=== PATIENT | female | born 1970 | race Caucasian/White ===

== ENCOUNTER → 2018-01-25 13:21 | Outpatient (CLI) | payer OTHER, SELFPAY ==
--- NOTE | 2018-01-25 13:23 | BI_ITS ---
MAMMOGRAPHY - BILATERAL DIAGNOSTIC REASON FOR EXAM: Female, 48 years old. Bilateral breast tenderness for 3 weeks. PERTINENT HISTORY: Non-contributory. TECHNIQUE: Digital bilateral breast luzma (3D mammographic acquisition) in the CC and MLO projections. 2-D mediolateral oblique (MLO) and craniocaudad (CC) views of both breasts were obtained. CAD: Full Field Digital Mammography with Computer Added Detection was performed. COMPARISON: Comparison is made with prior examination April 20, 2017. FINDINGS: Breast Composition: The breasts are heterogeneously dense, which may obscure small masses. There are no dominant masses or suspicious calcifications. Focal asymmetry of breast tissue in the upper deep inner aspect of the right breast. Correlation with ultrasound is recommended. No other significant abnormalities are identified. BI/DIAG MAMM W/CAD, BILAT IMPRESSION: Focal breast asymmetry in the upper deep inner aspect of the right breast. Correlation with ultrasound is recommended. ASSESSMENT CATEGORY: BIRADS Category 0: Incomplete. Need additional imaging evaluation. A letter regarding these results will be sent to the patient by the facility within 30 days. Approximately 10% of breast cancers are not detected by mammography. A normal mammogram should not delay biopsy of a clinically suspicious abnormality. Electronically Signed: Amor Rangel MD at 14:22 EDT Tel [phone], Service support ,
--- NOTE | 2018-01-25 13:23 | US_ITS ---
STUDY: ULTRASOUND BREAST - RIGHT REASON FOR EXAM: Female, 48 years old. Right breast tenderness. TECHNIQUE: Axial and longitudinal images of the RIGHT breast were performed with a high resolution ultrasound transducer. COMPARISON: Comparison is made with prior mammogram done earlier in the day. Comparison made with prior ultrasound outside examination dated April 20, 2016. FINDINGS: RIGHT Breast: Heterogeneous fibroglandular tissue is seen. There is no evidence of solid or cystic mass. The previously seen lymph node at the 10:00 position in the breast measures 6 mm x 6 mm x 2 mm. Mild dilatation of the retroareolar ducts. US/Breast Limited Unilateral IMPRESSION: Dense fibroglandular tissue. No solid or cystic mass lesion is seen. ASSESSMENT CATEGORY: BIRADS Category 2: Benign. A letter regarding these results will be sent to the patient by the facility within 30 days. Electronically Signed: Amor Rangel MD at 14:51 EDT Tel [phone], Service support ,
== END ==
PROVIDERS: Family Provider Family Medicine; PCP Family Medicine; Visit Provider Nurse Practitioner Women's Health
DX: N64.4 Mastodynia (principal)
CPT/HCPCS: 76642; 77062; 77066; G0279

== ENCOUNTER → 2018-06-28 17:24 | Outpatient (CLI) | payer OTHER, SELFPAY ==
[2018-06-28 08:23] VITALS: BMI 26.6
== END ==
PROVIDERS: Family Provider Family Medicine; PCP Family Medicine; Referring Provider Nurse Practitioner Women's Health; Visit Provider Nurse Practitioner Women's Health
DX: N39.0 Urinary tract infection, site not specified (principal); R10.2 Pelvic and perineal pain
CPT/HCPCS: 87077; 87086; 87088; 87186

== ENCOUNTER → 2018-06-29 12:56 | Outpatient (CLI) | payer OTHER, SELFPAY ==
[2018-06-28 08:23] VITALS: BMI 26.6
--- NOTE | 2018-06-29 12:58 | US_ITS ---
STUDY: ULTRASOUND OF THE FEMALE PELVIS - COMPLETE REASON FOR EXAM: Female, 48 years old. Pelvic pain with ablation 2 years ago, history of left ovarian cyst removal LMP: Unknown. TECHNIQUE: Transabdominal imaging initially performed with subsequent endovaginal imaging needed for initial incomplete visualization of the endometrial complex TECHNICAL QUALITY: Adequate. COMPARISON: None. FINDINGS: The uterus is anteverted and is in a midline position. The uterus measures 7.1 x 4.1 x 3.2 cm. Normal uterine cervix. The endometrium measures 2.0 mm in thickness, and is hyperechoic. There is no demonstrated endometrial mass. There is no demonstrated myometrial mass. I.U.D. - The patient does not have an I.U.D. The right ovary is visualized. The right ovary measures 2.4 x 1.9 x 1.0 cm. There is no right ovarian cyst or ovarian mass. There is no visualized right adnexal mass or complex lesion. There is normal arterial and normal venous vascularity. The left ovary is visualized. The left ovary measures 1.2 x 1.7 x 1.3 cm. There is no left ovarian cyst or ovarian mass. There is no visualized left adnexal mass or complex lesion. There is normal arterial and normal venous vascularity. There is no fluid in the cul-de-sac. Visualized urinary bladder is unremarkable. US/Transvaginal Non- IMPRESSION: Normal female pelvis. No ovarian, endometrial or uterine masses. Electronically Signed: Quentin Rice MD at 8:06 EST , Service support ,
--- NOTE | 2018-06-29 12:58 | US_ITS ---
STUDY: ULTRASOUND OF THE FEMALE PELVIS - COMPLETE REASON FOR EXAM: Female, 48 years old. Pelvic pain with ablation 2 years ago, history of left ovarian cyst removal LMP: Unknown. TECHNIQUE: Transabdominal imaging initially performed with subsequent endovaginal imaging needed for initial incomplete visualization of the endometrial complex TECHNICAL QUALITY: Adequate. COMPARISON: None. FINDINGS: The uterus is anteverted and is in a midline position. The uterus measures 7.1 x 4.1 x 3.2 cm. Normal uterine cervix. The endometrium measures 2.0 mm in thickness, and is hyperechoic. There is no demonstrated endometrial mass. There is no demonstrated myometrial mass. I.U.D. - The patient does not have an I.U.D. The right ovary is visualized. The right ovary measures 2.4 x 1.9 x 1.0 cm. There is no right ovarian cyst or ovarian mass. There is no visualized right adnexal mass or complex lesion. There is normal arterial and normal venous vascularity. The left ovary is visualized. The left ovary measures 1.2 x 1.7 x 1.3 cm. There is no left ovarian cyst or ovarian mass. There is no visualized left adnexal mass or complex lesion. There is normal arterial and normal venous vascularity. There is no fluid in the cul-de-sac. Visualized urinary bladder is unremarkable. US/Pelvic (Non ) IMPRESSION: Normal female pelvis. No ovarian, endometrial or uterine masses. Electronically Signed: Quentin Rice MD at 8:06 EST , Service support ,
== END ==
PROVIDERS: Family Provider Family Medicine; PCP Family Medicine; Referring Provider Nurse Practitioner Women's Health; Visit Provider Nurse Practitioner Women's Health
DX: R10.2 Pelvic and perineal pain (principal)
CPT/HCPCS: 76830; 76856; 93976

== ENCOUNTER → 2018-07-20 14:06 | Outpatient (CLI) | payer OTHER, SELFPAY ==
[2018-07-18 14:44] VITALS: BMI 26.6
== END ==
PROVIDERS: Family Provider Family Medicine; PCP Family Medicine; Visit Provider Obstetrics & Gynecology
DX: R30.0 Dysuria (principal)
CPT/HCPCS: 87086; 87088

== ENCOUNTER → 2018-08-08 13:50 | Outpatient (CLI) | payer OTHER, SELFPAY ==
[2018-07-18 14:44] VITALS: BMI 26.6
--- NOTE | 2018-08-08 13:53 | US_ITS ---
STUDY: RENAL ULTRASOUND - COMPLETE REASON FOR EXAM: Female, 48 years old. Recurrent urinary tract infections. TECHNIQUE: Ultrasound evaluation of the kidneys was performed with real-time and static king-scale imaging. COMPARISON: None. FINDINGS: RIGHT KIDNEY: 11.3 x 5.1 x 5.5 cm. Normal cortical thickness 1.6 cm, normal cortical echotexture. There is no mass, cyst, calculus or hydronephrosis. The right ureteral jet within the urinary bladder is visualized. LEFT KIDNEY: 10.2 x 4.8 x 5.1 cm. Normal cortical thickness 1.5 cm, normal cortical echotexture. There is no mass, cyst, calculus or hydronephrosis. The left ureteral jet within the urinary bladder is not visualized. BLADDER: Distended urinary bladder volume 251 mL. Wall thickness up to 4 mm. Normal caliber and contour. No intraluminal debris. US/Kidney and Bladder IMPRESSION: Normal sonographic features of each kidney. Normal sonographic features of the urinary bladder. The right ureteral jet is visualized within urinary bladder. The left ureteral jet is not visualized. This may merely be a matter of timing relative to the activity of urine bolus from the left kidney. Electronically Signed: Bryn Benites MD at 14:44 EST Tel , Service support ,
== END ==
PROVIDERS: Family Provider Family Medicine; PCP Family Medicine; Referring Provider Urology; Visit Provider Urology
DX: N39.0 Urinary tract infection, site not specified (principal)
CPT/HCPCS: 76770

== ENCOUNTER → 2019-06-01 15:04 | Outpatient (CLI) | payer OTHER, SELFPAY ==
[2018-07-18 14:44] VITALS: BMI 26.6
--- NOTE | 2019-06-01 15:34 | BI_ITS ---
MAMMOGRAPHY - BILATERAL SCREENING REASON FOR EXAM: Female, 49 years old. Routine annual screening examination. PERTINENT HISTORY: Non-contributory. TECHNIQUE: Digital bilateral breast vanessa (3D mammographic acquisition) in the CC and MLO projections. 2-D mediolateral oblique (MLO) and craniocaudad (CC) views of both breasts were obtained. CAD: Full Field Digital Mammography with Computer Added Detection was performed. COMPARISON: Comparison is made with prior mammogram dated January 25, 2018 and April 20, 2017. FINDINGS: Breast Composition: The breasts are heterogeneously dense, which may obscure small masses. There are no dominant masses or suspicious calcifications. No other significant abnormalities are identified. There has been no significant change since the prior study. BI/SCREEN MAMM (CAD) W/VANESSA BILAT IMPRESSION: Stable bilateral screening mammogram. Yearly follow-up mammogram recommended. (A) ASSESSMENT CATEGORY: BIRADS Category 1: Negative. A letter regarding these results will be sent to the patient by the facility within 30 days. Approximately 10% of breast cancers are not detected by mammography. A normal mammogram should not delay biopsy of a clinically suspicious abnormality. [id number] Electronically Signed: Amor Rangel, at 8:37 EST , Service support ,
== END ==
PROVIDERS: Family Provider Family Medicine; PCP Family Medicine; Referring Provider Obstetrics & Gynecology; Visit Provider Obstetrics & Gynecology
DX: Z12.31 Encounter for screening mammogram for malignant neoplasm of breast (principal)
CPT/HCPCS: 77063; 77067

== ENCOUNTER → 2020-07-04 07:21 | Outpatient (CLI) | payer OTHER, SELFPAY ==
[2018-07-18 14:44] VITALS: BMI 26.6
--- NOTE | 2020-07-04 07:25 | BI_ITS ---
MAMMOGRAPHY - BILATERAL SCREENING REASON FOR EXAM: Female, 50 years old. Routine annual screening examination. PERTINENT HISTORY: Non-contributory. TECHNIQUE: Digital bilateral breast vanessa (3D mammographic acquisition) in the CC and MLO projections. 2-D mediolateral oblique (MLO) and craniocaudad (CC) views of both breasts were obtained. CAD: Full Field Digital Mammography with Computer Added Detection was performed. COMPARISON: Comparison is made with prior examination dated 06/01/2019 and 01/25/2018. FINDINGS: Breast Composition: The breasts are heterogeneously dense, which may obscure small masses. There are no dominant masses or suspicious calcifications. No other significant abnormalities are identified. There has been no significant change since the prior study. BI/SCREEN MAMM (CAD) W/VANESSA BILAT IMPRESSION: Stable bilateral screening mammogram. Yearly follow-up mammogram recommended. (A) ASSESSMENT CATEGORY: BIRADS Category 1: Negative. A letter regarding these results will be sent to the patient by the facility within 30 days. Approximately 10% of breast cancers are not detected by mammography. A normal mammogram should not delay biopsy of a clinically suspicious abnormality. [id number] Electronically Signed: Amor Rangel, at 8:45 EST , Service support ,
== END ==
PROVIDERS: PCP Family Medicine; Referring Provider Obstetrics & Gynecology; Visit Provider Obstetrics & Gynecology
DX: Z12.31 Encounter for screening mammogram for malignant neoplasm of breast (principal)
CPT/HCPCS: 77063; 77067

== ENCOUNTER → 2021-01-12 17:15 | Outpatient (CLI) | payer OTHER, SELFPAY ==
[2021-01-12 15:24] VITALS: BMI 26.6
[2021-01-15 15:15] LABS: HPV APTIMA, High Risk Negative (Negative)
== END ==
PROVIDERS: PCP Family Medicine; Referring Provider Obstetrics & Gynecology; Visit Provider Obstetrics & Gynecology
DX: Z12.4 Encounter for screening for malignant neoplasm of cervix (principal)
CPT/HCPCS: 87624; 88175; G0145

== ENCOUNTER → 2021-05-01 08:46 | Outpatient (CLI) | payer OTHER, SELFPAY ==
[2021-05-01 10:24] LABS: Estradiol 22.9 pg/mL; Follicle Stimulating Hormone 86.8 mIU/mL
== END ==
PROVIDERS: PCP Family Medicine; Referring Provider Obstetrics & Gynecology; Visit Provider Obstetrics & Gynecology
DX: E28.39 Other primary ovarian failure (principal)
CPT/HCPCS: 36415; 82670; 83001

== ENCOUNTER 2021-07-07 17:35 | Outpatient (CLI) | payer OTHER, SELFPAY ==
[2021-07-07] MEDS: 0.9% Saline Lock 10 ML Syringe IV (17:48)
[2021-07-07 17:49] VITALS: BP 154/100; PULSE 88; RESP 16; TEMP 36.4; O2SAT 100; BMI 27.4
[2021-07-07 18:12] VITALS: BP 151/86; PULSE 77; RESP 16; TEMP 36.8; O2SAT 100
[2021-07-07 19:04] VITALS: BP 153/104; PULSE 74; RESP 16; TEMP 36.8; O2SAT 100
== END 2021-07-07 23:59 | disposition home or self-care (01) ==
LOC: MS3OUT 17:36 → MS3 17:36
PROVIDERS: PCP Family Medicine; Referring Provider Nurse Practitioner Adult Health; Visit Provider Nurse Practitioner Adult Health
DX: Z23 Encounter for immunization (principal); U07.1 COVID-19
CPT/HCPCS: J7050; M0243; A4216; Q0244

== ENCOUNTER → 2022-01-22 | Outpatient (CLI) | payer OTHER, SELFPAY ==
--- NOTE | 2022-01-22 07:16 | BI_ITS ---
MAMMOGRAPHY - BILATERAL SCREENING REASON FOR EXAM: Female, 52 years old. Routine annual screening examination. PERTINENT HISTORY: Non-contributory. TECHNIQUE: Digital bilateral breast vanessa (3D mammographic acquisition) in the CC and MLO projections. 2-D mediolateral oblique (MLO) and craniocaudad (CC) views of both breasts were obtained. CAD: Full Field Digital Mammography with Computer Added Detection was performed. COMPARISON: Comparison is made with prior study dated 07/04/2020 and 06/01/2019. FINDINGS: Breast Composition: The breasts are heterogeneously dense, which may obscure small masses. There are no dominant masses or suspicious calcifications. No other significant abnormalities are identified. There has been no significant change since the prior study. BI/SCRN MAMM (CAD)W/VANESSA BILAT IMPRESSION: Stable bilateral screening mammogram. Yearly follow-up mammogram recommended. (A) ASSESSMENT CATEGORY: BIRADS Category 1: Negative. A letter regarding these results will be sent to the patient by the facility within 30 days. Approximately 10% of breast cancers are not detected by mammography. A normal mammogram should not delay biopsy of a clinically suspicious abnormality. [id number] Electronically Signed: Amor Rangel MD at 8:21 EDT ,
== END | disposition home or self-care (01) ==
LOC: OPBI 07:14
PROVIDERS: PCP Family Medicine; Visit Provider Obstetrics & Gynecology
DX: Z12.31 Encounter for screening mammogram for malignant neoplasm of breast (principal)
CPT/HCPCS: 77063; 77067

== ENCOUNTER 2022-09-03 11:03 | Outpatient (RCR) | payer OTHER, SELFPAY ==
--- NOTE | 2022-09-03 13:08 | HP.PTEVAL_ITS ---
Patient's Visit Information MATTIE JARRETT is a 52 year old F referred to Physical Therapy by Dr. Yvonne Hogan MD with a diagnosis of OVER ACTIVE BLADDER AND URGE INCONTINENCE. Date of Evaluation: 09/03/22 Physical Therapist: Teresa Gonzalez, PT, Cert MDT - Visit Plan Frequency: 1x/Week Duration: 6-8 WKS Plan: OVERACTIVE BLADDER AND URGE INCONTINENCE EDUCATION AND INSTRUCTION IN BEHAVIORAL MODIFICATIONS. CORE, PELVIC FLOOR AND HIP STRENGTHENING. HIP STRETCHING. - Subjective Work/Leisure: STAY AT HOME GRANDMA - I BABYSIT. GRANDCHILDREN ARE 10 AND 5 YEARS OLD. Disability: NO. Present symptoms: URGENCY TO URINATE. SOMETIMES NOT ABLE TO MAKE IT TO THE BATHROOM IN TIME. SX'S ARE MUCH BETTER SINCE STARTING GEMTESA ABOUT 2 WKS AGO. Present since: MAY 2022. Pain Scale: NO PAIN. Is it getting better, worse or staying the same: GETTING BETTER. Commenced as a result of: NO APPARENT REASON. Worse: COFFEE (WAS DRINKING 10 CUPS OF COFFEE A DAY AND NOW DOWN TO ABOUT 5 CUPS). Better: GEMTESA AND REDUCING COFFEE INTAKE. Disturbed sleep: NO. NOT GETTING UP TO URINATE. Previous history/Previous treatment: NONE. Treatment this episode: GEMTESA AND PT CONSULT. Coughing/sneezing/straining: NOT USUALLY. Gait: NORMAL. How long can you delay the need to urinate: 10 TO 15 MINUTES. Prolapse (Falling out feeling): NO. Frequency of Urination: ABOUT 9 TIMES (DID BLADDER DIARY FOR DR. HOGAN). Ability to stop urine flow: NO. Ability to initiate urine stream: NO. Dyspareunia: NO. Bowel Incontinence: NO. Accidents: NO. Unexplained weight loss: NO. Imaging: NO. PMH/Recent major surgery: HTN, ASTHMA - Objective Sitting/Standing Posture: FAIR. NORMAL LORDOSIS AND NO RELEVANT LATERAL SHIFT. Other Observations: INDEP GAIT AND TRANSFERS. Sensory deficit: BRIGHT LE LIGHT TOUCH SENSATION GROSSLY INTACT AND SYMMETRICAL. ROM deficit: BRIGHT LE'S WFL BUT RIGHT HIP, HS'S AND CALF MILDLY TIGHTER THAN LEFT. MILD BRIGHT HIP ADDUCTOR TIGHTNESS. Motor deficit: BRIGHT LE'S GROSSLY 5/5 WITH MMT'ING EXCEPT HIPS, R 4- /5, L 4/5. Dural Signs: NEGATIVE BRIGHT LE'S. Lumbar mvmt loss: flex - MIN. ext - MIN. R SG - MIN. L SG - MIN. PATIENT DENIES PAIN WITH LUMBAR ROM TESTING. Core strength: FAIR. Palpation: INTERNAL VAGINAL PF EXAM REVEALS 3/5 PELVIC FLOOR STRENGTH WITH 3 SEC ENDURANCE. PATIENT DENIES PAIN OR TENDERNESS WITH PALPATION OF PELVIC FLOOR REGIONS OR WITH TESTING. FUNCTIONAL SCREEN: Incontinence Impact Questionnaire Score: 3. Urogenital Distress Inventory Score: 3 - Goals Goal 1:: PATIENT WILL SUCCESSFULLY DELAY VOIDING FOR 60 MINUTES WHEN URGENCY OCCURS Goal Time Frame: 8-12 Weeks Goal 2:: PATIENT WILL HAVE INCREASED PELVIC FLOOR MUSCLE STRENGTH GRADE TO 5/5 Goal Time Frame: 8-12 Weeks Goal 3:: PATIENT WILL DEMONSTRATE 10 CONSISTENT AND CONSECUTIVE 10 SECOND PELVIC FLOOR MUSCLE CONTRACTIONS TO DEMONSTRATE IMPROVED PELVIC FLOOR ENDURANCE. Goal Time Frame: 8-12 Weeks Goal 4:: NORMALIZE VOIDING FREQUENCEY TO EVERY 3-4 HOURS. Goal Time Frame: 4-6 Weeks Goal 5:: PATIENT WILL BE INDEP WITH A HEP/HOME INSTRUCTIONS FOR CONTINUED IMPROVEMENT ONCE FORMAL PHYSICAL THERAPY CONCLUDES. Goal Time Frame: 8-12 Weeks - Anticipated Interventions Patient/Client Instruction: Educate patient on: Condition, Plan of Care, Risk Factors For the Purpose of:: To improve self management Therapeutic Exercise to Include: Strength training, Flexibilty training, Neuromotor development, Relaxation training For the Purpose of:: To improve muscle performance and motor function, To increase tolerance to activity/condition/position, To improve ability of physical actions for home/community/work/leisure Thank you for the opportunity to evaluate your patient. For Medicare and Medicare HMO plans, please review the plan of care and approve it. It will need to be FAXED BACK to us at [phone] for Medicare purposes. For Medicare only, by signing this I certify the plan of care. Please let me know if there are questions or concerns regarding this plan of care. Physician Signature: Date:
--- NOTE | 2022-10-01 08:09 | HP.PT.NRP ---
MATTIE JARRETT was seen in my office for initial evaluation on 09/03/22. The following Plan of Care was established for this patient: Initial Frequency: 1x/Week Initial Duration: 6-8 WKS Patient/Client Instruction: Educate patient on: Condition, Plan of Care, Risk Factors For the Purpose of:: To improve self management Therapeutic Exercise to Include: Strength training, Flexibilty training, Neuromotor development, Relaxation training For the Purpose of:: To improve muscle performance and motor function, To increase tolerance to activity/condition/position, To improve ability of physical actions for home/community/work/leisure This patient was last seen in our office 09/03/22. Pertinent comments regarding their Physical therapy will appear below: This patient has not returned to Physical Therapy and is appropriate to return to MD for further follow-up as needed. At this point I will be discontinuing this patient from physical therapy. I would be happy to see this patient again in the future if found appropriate by the physician. Thank you! Teresa Gonzalez, PT, Cert MDT
== END 2022-09-03 19:00 | disposition home or self-care (01) ==
LOC: PT 11:03
PROVIDERS: PCP Family Medicine; Referring Provider Urology; Visit Provider Urology
DX: N39.41 Urge incontinence (principal); N32.81 Overactive bladder
CPT/HCPCS: 97162; 97530

== ENCOUNTER → 2023-01-28 | Outpatient (CLI) | payer OTHER, SELFPAY ==
--- NOTE | 2023-01-28 07:27 | BI_ITS ---
MAMMOGRAPHY - BILATERAL SCREENING REASON FOR EXAM: Female, 53 years old. Routine annual screening examination. PERTINENT HISTORY: Non-contributory. TECHNIQUE: Digital bilateral breast vanessa (3D mammographic acquisition) in the CC and MLO projections. 2-D mediolateral oblique (MLO) and craniocaudad (CC) views of both breasts were obtained. CAD: Full Field Digital Mammography with Computer Added Detection was performed. COMPARISON: Comparison is made with prior study dated January 22, 2022 and July 04, 2020. FINDINGS: Breast Composition: The breasts are heterogeneously dense, which may obscure small masses. There are no dominant masses or suspicious calcifications. No other significant abnormalities are identified. There has been no significant change since the prior study. BI/SCRN MAMM (CAD)W/VANESSA BILAT IMPRESSION: Stable bilateral screening mammogram. Yearly follow-up mammogram recommended. (A) ASSESSMENT CATEGORY: BIRADS Category 1: Negative. A letter regarding these results will be sent to the patient by the facility within 30 days. Approximately 10% of breast cancers are not detected by mammography. A normal mammogram should not delay biopsy of a clinically suspicious abnormality. [id number] Electronically Signed: Amro Rangel MD at 9:50 EDT ,
== END | disposition home or self-care (01) ==
PROVIDERS: PCP Family Medicine; Referring Provider Obstetrics & Gynecology; Visit Provider Obstetrics & Gynecology
DX: Z12.31 Encounter for screening mammogram for malignant neoplasm of breast (principal)
CPT/HCPCS: 77063; 77067

== ENCOUNTER → 2023-10-28 | Outpatient (CLI) | payer OTHER, SELFPAY ==
--- NOTE | 2023-10-28 07:04 | EKG12_ITS ---
Test Reason : ABN WEIGHT GAIN Blood Pressure : / mmHG Vent. Rate : 068 BPM Atrial Rate : 068 BPM P-R Int : 164 ms QRS Dur : 090 ms QT Int : 392 ms P-R-T Axes : 049 061 051 degrees QTc Int : 416 ms Normal sinus rhythm Normal ECG Confirmed by CHRISTIE RAMOS, ARIELLE ([id number]), associate entertainment editor LAURA CROWE ([id number]) on 10/31/2023 11:47:13 AM Referred By: Shelia Vasquez Confirmed By:ARIELLE SORIANO MD
[2023-10-28 07:31] LABS: Absolute Lymphocyte Count 1.15 X10^3/uL (0.83-4.51); Absolute Neutrophil Count 1.7 X10^3/uL (2.0-7.7); Basophil# 0.03 X10^3/uL; Eosinophil# 0.01 X10^3/uL; Eosinophils% 0.3 % (0-5); Hematocrit 41.2 % (37-47); Hemoglobin 14.1 g/dL (12.0-15.0); Lymphocyte # 1.15 X10^3/ul (0.83-4.51); Mean Corp Hgb Conc 34.2 g/dL (32-36); Mean Corpuscular Hgb 30.9 pg (27.0-32.0); Mean Corpuscular Volume 90.4 fL (81-99); Mean Platelet Vol. 8.6 fl (6.2-12.0); Monocyte# 0.22 X10^3/uL; Monocyte% 7.1 % (0-10); NRBC Flagged by Analyzer 0 % (0-5); Neutrophil # 1.69 X10^3/uL (2.7-7.7); Neutrophil % 54.3 % (47-70); Platelet Count 195 K/mm3 (150-450); RBC Distribution Width CV 11.5 % (11.6-14.6); RBC Distribution Width SD 38.2 fl (35.1-43.9); Red Blood Count 4.56 M/mm3 (4.2-5.4); White Blood Count 3.1 K/mm3 (4.4-11.0)
[2023-10-28 08:02] LABS: Vitamin D,25 Hydroxy 38.8 ng/mL
[2023-10-28 08:45] LABS: ALB/GLOB Ratio 1.2 RATIO (0.9-2.4); AST(SGOT) 40 U/L (15-37); Alanine Aminotransfer ALT/SGPT 43 U/L (13-56); Albumin, Serum 3.7 g/dL (3.2-5.0); Alkaline Phosphatase 77 U/L (45-117); Anion Gap 4 (5-15); BUN 10 mg/dL (7-18); BUN/Creat Ratio 11.8 RATIO (10-20); Chloride 105 mmol/L (98-107); Cholesterol 213 mg/dL (200); Creatinine, Serum 0.85 mg/dL (0.55-1.02); EST Glomerular Filtration Rate 74 mL/min (>60); Est Glom Filt Rate - Afr Amer 90 mL/min (>60); Glucose 96 mg/dL (74-106); High Density Lipoprotein 82 mg/dL; Potassium 3.8 mmol/L (3.5-5.1); Protein, Total 6.7 g/dL (6.4-8.2); Sodium Level 138 mmol/L (136-145); Thyroid Stim Hormone (TSH) 1.77 uIU/mL (0.358-3.74); Triglycerides 60 mg/dL; Very Low Density Lipoprotein 12 mg/dL (5-40)
[2023-10-28 10:55] LABS: Hemoglobin A1c 5.1 % (3.8-5.6)
== END | disposition home or self-care (01) ==
LOC: PSN 07:03
PROVIDERS: PCP Family Medicine; Referring Provider Obstetrics & Gynecology; Visit Provider Obstetrics & Gynecology
DX: R63.5 Abnormal weight gain (principal); I10 Essential (primary) hypertension; N95.1 Menopausal and female climacteric states
CPT/HCPCS: 36415; 80053; 80061; 82306; 83036; 84443; 85025; 93005

== ENCOUNTER → 2023-11-25 | Outpatient (CLI) | payer OTHER, SELFPAY ==
--- NOTE | 2023-11-25 08:14 | US_ITS ---
STUDY: ABDOMINAL ULTRASOUND - RIGHT UPPER QUADRANT; ELASTOGRAPHY REASON FOR VISIT: Female, 53 years old. OROZCO TECHNIQUE: Ultrasound evaluation of the right upper quadrant was performed with real-time and static fernandez-scale imaging. Point quantification shear wave elastography was performed ([employer]). TECHNICAL QUALITY: Adequate. COMPARISON: None. FINDINGS: Liver: The liver measures 15.7 cm. There is normal echogenicity of the liver. The bile ducts are within normal limits. There is hepatic color flow. The direction of portal flow is hepatopetal. There is no demonstrated mass lesion. Median liver stiffness measured 5.3 kPa. Gallbladder: Normal distended gallbladder. The gallbladder wall measures 2.8 mm. There is a negative sonographic Busch''s sign. There is no pericholecystic fluid. There are no gallstones. Common Bile Duct (C.B.D.): The common bile duct measures 3.7 mm. Pancreas: There is normal echogenicity of the visualized pancreas. There is no demonstrated pancreatic mass or cyst. Right Kidney: Normal size of the right kidney. The right kidney measures 9.9 cm x 5.2 cm x 5.1 cm. Normal renal cortex. The right cortex measures 1.1 cm. There is no demonstrated renal mass or cyst. There is no right hydronephrosis. US/ABD Limited w/ Elastography IMPRESSION: 1. Liver stiffness measures 5.3 kPa compatible with F0-F1 (Normal to mild liver fibrosis) Metavir score. Electronically Signed: Amor Rangel MD at 9:36 EDT ,
== END | disposition home or self-care (01) ==
LOC: US 08:12
PROVIDERS: PCP Family Medicine; Referring Provider Physician Assistant; Visit Provider Physician Assistant
DX: R79.89 Other specified abnormal findings of blood chemistry (principal); K75.81 Nonalcoholic steatohepatitis (NASH)
CPT/HCPCS: 76705; 76981

== ENCOUNTER → 2024-02-03 | Outpatient (CLI) | payer OTHER, SELFPAY ==
--- NOTE | 2024-02-03 10:03 | BI_ITS ---
MAMMOGRAPHY - BILATERAL SCREENING 3-D TOMOSYNTHESIS REASON FOR EXAM: Female, 54 years old. screening mammogram PERTINENT HISTORY: No significant family history. TECHNIQUE: 2-D mammograms and 3-D Tomosynthesis of the breast (s) were performed. CAD was performed. COMPARISON: 01/28/2023 FINDINGS: The breast composition is composed of scattered fibroglandular density. Scattered benign calcifications are seen. No dense spiculated masses or suspicious microcalcifications are identified. No architectural distortion is identified. There is no skin thickening or retraction. There has been no significant change since the prior study. BI/SCRN MAMM (CAD)W/VANESSA BILAT IMPRESSION: No mammographic signs of malignancy. Routine yearly mammograms recommended. ASSESSMENT CATEGORY: BIRADS Category 1: Negative. A letter regarding these results will be sent to the patient by the facility within 30 days. FOLLOW UP RECOMMENDATION: Yearly follow up mammogram recommended. (A) Approximately 10% of breast cancers are not detected by mammography. A normal mammogram should not delay biopsy of a clinically suspicious abnormality. Electronically Signed: Bryn Decker MD at 13:31 EDT ,
== END | disposition home or self-care (01) ==
LOC: OPBI 10:02
PROVIDERS: PCP Family Medicine; Referring Provider Obstetrics & Gynecology; Visit Provider Obstetrics & Gynecology
DX: Z12.31 Encounter for screening mammogram for malignant neoplasm of breast (principal)
CPT/HCPCS: 77063; 77067

== ENCOUNTER → 2024-11-17 | Outpatient (CLI) | payer OTHER, SELFPAY ==
[2024-11-17 07:55] LABS: Absolute Lymphocyte Count 1.48 X10^3/uL (0.83-4.51); Absolute Neutrophil Count 1.7 X10^3/uL (2.0-7.7); Basophil# 0.04 X10^3/uL; Basophil% 1.1 % (0-1); Eosinophil# 0.14 X10^3/uL; Eosinophils% 3.8 % (0-5); Hematocrit 43.4 % (37-47); Hemoglobin 15.1 g/dL (12.0-15.0); Lymphocyte # 1.48 X10^3/ul (0.83-4.51); Lymphocyte % 40.1 % (19-41); Mean Corp Hgb Conc 34.8 g/dL (32-36); Mean Corpuscular Hgb 31.7 pg (27.0-32.0); Mean Corpuscular Volume 91.2 fL (81-99); Mean Platelet Vol. 8.6 fl (6.2-12.0); Monocyte# 0.29 X10^3/uL; Monocyte% 7.9 % (0-10); NRBC Flagged by Analyzer 0 % (0-5); Neutrophil # 1.73 X10^3/uL (2.7-7.7); Neutrophil % 46.8 % (47-70); Platelet Count 228 K/mm3 (150-450); RBC Distribution Width CV 11.6 % (11.6-14.6); RBC Distribution Width SD 39.2 fl (35.1-43.9); Red Blood Count 4.76 M/mm3 (4.2-5.4); White Blood Count 3.7 K/mm3 (4.4-11.0)
[2024-11-17 08:57] LABS: ALB/GLOB Ratio 1.8 RATIO (0.9-2.4); AST(SGOT) 37 U/L (<=31); Alanine Aminotransfer ALT/SGPT 33 U/L (<=34); Albumin, Serum 4.4 g/dL (3.5-5.0); Alkaline Phosphatase 93 U/L (35-104); Anion Gap 8 (5-15); BUN 16 mg/dL (4-19); BUN/Creat Ratio 19.4 RATIO (10-20); Calcium,Total 9.5 mg/dL (7.6-11.0); Carbon Dioxide 27.5 mmol/L (21.0-32.0); Chloride 103 mmol/L (98-108); Cholesterol 218 mg/dL (<=200); Creatinine, Serum 0.83 mg/dL (0.70-1.20); EST Glomerular Filtration Rate 84 (>60); Estradiol 29.4 pg/mL; Follicle Stimulating Hormone 70.5 mIU/mL; Globulin 2.5 g/dL (2.2-4.2); Glucose 109 mg/dL (70-99); High Density Lipoprotein 73 mg/dL; Low Density Lipoprotein Calc. 133 mg/dL; Potassium 4.8 mmol/L (3.3-5.1); Protein, Total 6.8 g/dL (5.9-8.4); Sodium Level 138 mmol/L (133-145); Total Bilirubin 0.26 mg/dL (0.00-1.30); Triglycerides 58 mg/dL; Very Low Density Lipoprotein 12 mg/dL (5-40); cholesterol:hdl ratio screen 2.99
== END | disposition home or self-care (01) ==
LOC: LAB 07:41
PROVIDERS: PCP Family Medicine; Referring Provider Nurse Practitioner Family; Visit Provider Nurse Practitioner Family
DX: N95.1 Menopausal and female climacteric states (principal); R53.83 Other fatigue
CPT/HCPCS: 36415; 80053; 80061; 82670; 83001; 85025

== ENCOUNTER → 2025-02-04 | Outpatient (CLI) | payer OTHER, SELFPAY ==
[2025-02-08 12:09] LABS: HPV APTIMA, High Risk Negative (Negative)
== END | disposition home or self-care (01) ==
PROVIDERS: PCP Family Medicine; Referring Provider Obstetrics & Gynecology; Visit Provider Obstetrics & Gynecology
DX: Z12.31 Encounter for screening mammogram for malignant neoplasm of breast (principal)
CPT/HCPCS: 77063; 77067; 87624; 88175; G0145